=== PATIENT | female | born 1985 | race Caucasian/White ===

== ENCOUNTER 2019-11-17 12:20 | Inpatient (IN) ==
[2019-11-17 13:28] LABS: Apearance,Urine CLEAR (Clear); Bacteria,Urine Occasional /HPF (Few); Bilirubin,Urine Negative (Negative); Blood, Urine Negative (Negative); Glucose,Urine (UA) Negative (Negative); Ketones,Urine Negative (Negative); Mucus,Urine Occasional /LPF (Occasional); Nitrite,Urine Negative (Negative); Protein,Urine Negative; RBC,Urine 1 /HPF (0-4); Squamous Epithelial Cell,Urine Occasional /HPF (0-10); Urine Color Yellow (Yellow); Urine Specific Gravity 1.023 (1.001-1.035); Urine Urobilinogen < 2.0 EU/DL (0.2-1.0); WBC,Urine 1 /HPF (0-6)
[2019-11-17] MEDS ORDERED: ONDANSETRON 4 MG/2 ML VIAL IV PRN (14:35)
[2019-11-17] MEDS ORDERED: LIDOCAINE 1% 50 ML VIAL MISC INJ ONE (14:35)
[2019-11-17] MEDS ORDERED: AMPICILLIN INJ 2,000 MG in SODIUM CHLORIDE 0.9% 100 ML IV ONE (14:42)
[2019-11-17] MEDS: LACTATED RINGERS 1,000 ML IV SCH (14:53)
[2019-11-17 15:07] LABS: Basophils % 0.3 % (0.0-0.8); Eosinophils # 0.1 10*3/uL (0.0-0.87); Eosinophils % 0.7 % (0.00-10.9); Hematocrit 38.3 VOL% (35.7-47.0); Immature Granulocytes % 0.5 %; Immature Granulocytes Absolute 0.06 #; Lymphocytes # 1.7 10*3/uL (1.4-4.0); Lymphocytes % 13.9 % (21.3-54.2); Mean Corpuscular HGB Conc 31.3 GM/DL (32-36); Mean Corpuscular Volume 90.1 FL (87-102); Mean Platelet Volume 11.2 FL (9.6-12.0); Monocytes % 5.7 % (1.7-12.7); Neutrophils % 78.9 % (38.7-73.9); Platelet Count 152 T/CUMM (130-400); Red Blood Count 4.25 MC/CUMM (3.8-5.5); Red Cell Distribution Width 12.6 % (9.3-17.3); White Blood Count 12.4 T/CUMM (4-12)
[2019-11-17] MEDS: AMPICILLIN INJ 1,000 MG in SODIUM CHLORIDE 0.9% 100 ML IV SCH (19:36)
[2019-11-17] MEDS: BUTORPHANOL 2 MG/ML VIAL IV PRN (19:49)
[2019-11-18] MEDS: AMPICILLIN INJ 1,000 MG in SODIUM CHLORIDE 0.9% 100 ML IV SCH ×2 (00:20→03:58)
[2019-11-18] MEDS: LACTATED RINGERS 1,000 ML IV SCH (00:21)
[2019-11-18] MEDS: BUTORPHANOL 2 MG/ML VIAL IV PRN (01:54)
[2019-11-18] MEDS ORDERED: diphenhydrAMINE 50 MG/1 ML VIAL IV PRN ×2 (03:42)
[2019-11-18] MEDS ORDERED: NALOXONE 0.4 MG/ML VIAL IV PRN (03:42)
[2019-11-18] MEDS ORDERED: ONDANSETRON 4 MG/2 ML VIAL IV ONE (03:42)
[2019-11-18] MEDS ORDERED: PROMETHAZINE 25 MG/1 ML VIAL IM ONE (03:42)
[2019-11-18] MEDS ORDERED: CITRIC ACID/SODIUM CITRATE 30 ML UDCUP PO ONE (03:42)
[2019-11-18] MEDS ORDERED: LACTATED RINGERS 1,000 ML IV ONE (03:42)
[2019-11-18] MEDS ORDERED: LACTATED RINGERS 500 ML IV ONE (03:42)
[2019-11-18] MEDS ORDERED: ePHEDrine 50 MG/ML VIAL IV PRN (03:42)
[2019-11-18] MEDS ORDERED: hydrOXYzine HCL 25 MG/1 ML VIAL IM PRN (03:42)
[2019-11-18] MEDS ORDERED: FAMOTIDINE 20 MG/2 ML VIAL IV ONE (03:42)
[2019-11-18] MEDS ORDERED: LACTATED RINGERS 1,000 ML IV SCH (04:00)
[2019-11-18] MEDS ORDERED: fentaNYL 2 MCG/ROPIV 0.2% EPID 100 ML EPIDURAL SCH (04:00)
[2019-11-18] MEDS ORDERED: TERBUTALINE 1 MG/1 ML VIAL SUBCUT PRN (05:10)
[2019-11-18] MEDS ORDERED: miSOPROStoL 200 MCG TABLET ONE (05:36)
[2019-11-18] MEDS ORDERED: OXYTOCIN/LR 20 UNIT/1,000 ML BAG IV ONE ×3 (05:37→11:51)
[2019-11-18] MEDS ORDERED: METHYLERGONOVINE 0.2 MG/1 ML AMP ONE (05:37)
[2019-11-18] MEDS ORDERED: CARBOPROST TROMETHAMINE 250 MCG/ML AMP IM ONE (05:37)
[2019-11-18] MEDS ORDERED: TRANEXAMIC ACID 1,000 MG/10 ML VIAL ONE (05:37)
[2019-11-18] MEDS ORDERED: BISACODYL 10 MG SUPP RECTAL PRN (06:57)
[2019-11-18] MEDS ORDERED: ACETAMINOPHEN 325 MG TABLET PO PRN (06:57)
[2019-11-18] MEDS ORDERED: RHO(D) IMMUNE GLOBULIN 300 MCG SYRINGE IM ONE (06:57)
[2019-11-18] MEDS ORDERED: WITCH HAZEL PADS 100/JAR TOP PRN (06:57)
[2019-11-18] MEDS ORDERED: BENZOCAINE 20%/MENTHOL 0.5% SPRAY 56 GM CAN TOP PRN (06:57)
[2019-11-18] MEDS ORDERED: LANOLIN 50% CREAM 0.3 OZ TUBE TOP PRN (06:57)
[2019-11-18] MEDS ORDERED: HYDROCORTISONE 2.5% RECTAL CREAM 30 GM TUBE TOP PRN (06:57)
[2019-11-18] MEDS ORDERED: MULTIVITAMIN (PRENATAL) TABLET PO SCH (09:00)
[2019-11-18] MEDS: ACETAMINOPHEN/CODEINE 300-30 MG TABLET PO PRN (16:00)
[2019-11-18] MEDS: IBUPROFEN 800 MG TABLET PO PRN (16:00)
[2019-11-18] MEDS: DOCUSATE SODIUM 100 MG CAPSULE PO SCH (20:40)
[2019-11-19] MEDS: ACETAMINOPHEN/CODEINE 300-30 MG TABLET PO PRN ×2 (00:34→11:49)
[2019-11-19] MEDS: IBUPROFEN 800 MG TABLET PO PRN ×2 (00:34→16:40)
[2019-11-19 03:01] LABS: Basophils % 0.2 % (0.0-0.8); Eosinophils # 0.2 10*3/uL (0.0-0.87); Eosinophils % 1.3 % (0.00-10.9); Hematocrit 32.4 VOL% (35.7-47.0); Hemoglobin 10.3 GM/DL (12.0-16.0); Immature Granulocytes % 0.5 %; Immature Granulocytes Absolute 0.07 #; Lymphocytes # 2.4 10*3/uL (1.4-4.0); Lymphocytes % 16.6 % (21.3-54.2); Mean Corpuscular HGB Conc 31.8 GM/DL (32-36); Mean Platelet Volume 10.9 FL (9.6-12.0); Monocytes % 7.2 % (1.7-12.7); Neutrophils % 74.2 % (38.7-73.9); Platelet Count 141 T/CUMM (130-400); Red Blood Count 3.64 MC/CUMM (3.8-5.5); Red Cell Distribution Width 12.9 % (9.3-17.3); White Blood Count 14.2 T/CUMM (4-12)
[2019-11-19] MEDS: DOCUSATE SODIUM 100 MG CAPSULE PO SCH (08:20)
[2019-11-19 11:35] VITALS: BP 106/60
[2019-11-19] MEDS ORDERED: RHO(D) IMMUNE GLOBULIN 300 MCG SYRINGE IM ONE (15:30)
== END 2019-11-19 17:50 | disposition home or self-care (01) | DRG 806 ==
LOC: N.LDOUT 12:20 → N.LD 12:21 → N.OB 11-18 13:16
PROVIDERS: ADMIT Obstetrics & Gynecology; ATTEND Obstetrics & Gynecology